=== PATIENT | female | born 1950 | race Caucasian/White ===

== ENCOUNTER 2017-01-03 08:36 | Day surgery (SDC) | payer OTHER ==
--- NOTE | 2017-01-01 15:45 | EKG Report ---
Test Performed on : 01/01/2017 3:38:56 PM Test Reason : PAT Blood Pressure : / mmHG Vent. Rate : 072 BPM Atrial Rate : 072 BPM P-R Int : 172 ms QRS Dur : 142 ms QT Int : 434 ms P-R-T Axes : 067 044 001 degrees QTc Int : 475 ms Normal sinus rhythm. Right bundle branch block T wave abnormality, consider inferior ischemia Abnormal ECG When compared with ECG of 25-FEB-2014 13:33, T wave inversion now evident in Inferior leads Confirmed by Shaggy AYOUB, Silvio Oneil ([id number]) on 01/03/2017 3:22:12 PM
[2017-01-01 16:25] LABS: BASO% 0.4 % (0.0-0.8); EOS# 0.21 X1000 (0.0-0.7); EOS% 2.6 % (0.0-10.0); HEMATOCRIT 42.1 % (37.0-47.0); HEMOGLOBIN 14.3 g/dL (12.0-16.0); MANUAL DIFF NEEDED? NO; MCH 31.3 PG (27-31); MCV 92.1 FL (81-99); MONO# 0.64 X1000 (0.11-0.59); MONO% 7.8 % (1.7-9.3); MPV 9.5 FL (7.4-10.4); NEUT% 56.2 % (42.2-75.2); PLT 189 X1000 (130-400); RBC 4.57 XMIL (4.2-5.4)
[2017-01-01 16:36] LABS: URINE MICRO REVIEW NEEDED? NO; URINE SOURCE CLEAN CATCH
[2017-01-01 16:41] LABS: BILIRUBIN URINE NEGATIVE (NEGATIVE); BLOOD URINE NEGATIVE (NEGATIVE); COLOR YELLOW; GLUCOSE URINE NEGATIVE (NEGATIVE); LEUKOCYTES URINE LARGE (NEGATIVE); NITRITE URINE NEGATIVE (NEGATIVE); PROTEIN URINE TRACE mg/dL (NEGATIVE); SP GRAVITY URINE 1.022; TURBIDITY URINE HAZY (CLEAR); UROBILINOGEN URINE NORMAL (NORMAL)
[2017-01-01 16:43] LABS: UR EPITHELIAL CELLS <10 /HPF (<10); URINE BACTERIA 2+ /HPF; URINE RBC <10 /HPF (<10)
[2017-01-01 17:45] LABS: AGAP 13; ALBUMIN 4.1 g/dL (3.5-5.0); ALKALINE PHOSPHATASE 84 U/L (32-104); BUN 15 mg/dL (8-22); CALCIUM 9.2 mg/dL (8.8-10.2); CHLORIDE 104 mmol/L (98-107); COSMO 288; GOT 20 U/L (10-30); GPT 19 U/L (10-36); POTASSIUM 4.3 mmol/L (3.5-5.1); SODIUM 144 mmol/L (136-145); TCO2 27 mmol/L (25-35); TOTAL PROTEIN 6.6 g/dL (6.3-8.3)
--- NOTE | 2017-01-01 19:59 | Diag Imaging Result Document ---
PROCEDURE NAME: CHEST-2 VIEWS - 01/01/2017 PA AND LATERAL RADIOGRAPHS OF CHEST: COMPARISON: 08/19/2014. FINDINGS: There is evidence of prior granulomatous disease, stable. There is stable mild elevation of the right hemidiaphragm. There is suggestion of mild linear scarring at the left lung base versus subsegmental atelectasis. The lungs are grossly clear, otherwise. Cardiac silhouette is unremarkable. IMPRESSION: Mild left basilar scarring versus subsegmental atelectasis. No definite acute pathology, otherwise.
[2017-01-03] MEDS ORDERED: LR 1,000 ML ONE ×3 (09:11→11:31)
[2017-01-03] MEDS ORDERED: PEPCID ONE (09:11)
[2017-01-03] MEDS ORDERED: KEFZOL 1 GM/D5W 50 ML ONE (09:12)
[2017-01-03] MEDS ORDERED: MARCAINE 0.25% PF/EPI 1:200,000 ONE (09:39)
[2017-01-03] MEDS ORDERED: SODIUM CHLORIDE 0.9% ONE (09:39)
[2017-01-03] MEDS ORDERED: FENTANYL ONE (11:23)
[2017-01-03] MEDS ORDERED: DIPRIVAN 1% ONE (11:23)
[2017-01-03] MEDS ORDERED: VERSED ONE (11:23)
[2017-01-03] MEDS: DEMEROL ONE ×2 (11:26→11:33)
[2017-01-03] MEDS ORDERED: ZOFRAN ONE (11:30)
[2017-01-03] MEDS ORDERED: XYLOCAINE-MPF 2% ONE (11:30)
[2017-01-03] MEDS ORDERED: EPHEDRINE ONE (11:30)
[2017-01-03] MEDS ORDERED: NEOSTIGMINE ONE (11:30)
[2017-01-03] MEDS ORDERED: ROBINUL ONE (11:30)
[2017-01-03] MEDS ORDERED: QUELICIN (DOSE) ONE (11:30)
[2017-01-03] MEDS ORDERED: ZEMURON ONE (11:30)
[2017-01-03] MEDS ORDERED: DECADRON ONE (11:31)
--- NOTE | 2017-01-03 11:31 | OPERATIVE NOTE ---
PROCEDURE DATE: 01/03/2017 PREOPERATIVE DIAGNOSES: 1. Cholecystitis. 2. Cholelithiasis. 3. Morbid obesity. 4. History of thrombocytopenia. PROCEDURE: Laparoscopic cholecystectomy with attempted cholangiogram. POSTOPERATIVE DIAGNOSIS: Chronic cholecystitis with cholelithiasis. DESCRIPTION OF PROCEDURE: The patient was brought to the operating room. After satisfactory induction of IV and endotracheal anesthesia, athrombic TEDs were placed. Her abdomen was broadly prepped and draped in the appropriate manner. Initially, a supraumbilical approach was taken with a Roper and Marcaine with epinephrine. The abdomen was insufflated to 3-1/2 L of carbon dioxide. Again, after infiltration with Marcaine and epinephrine, two 10 and two 5 mm trocars were placed. The fan retractor was deployed to ease in dissection of the hilum. The hilum was subsequently dissected. The gallbladder was grasped and retracted superiorly. The cystic duct itself was quite small. Attempted cystic duct cholangiogram was unsuccessful. For this reason, the duct was doubly clipped and divided, as was the cystic artery. The gallbladder was dissected from the liver bed with the use of monopolar scissors, freed up, placed in an EndoCatch bag, and removed. Reinspection of the liver bed revealed tiny bleeding points that were controlled by electrocautery. The subhepatic and subphrenic spaces were aspirated free of the small amount of bile and blood. All trocars were removed after abdominal deflation. The supraumbilical incision underwent fascial closures of 0 Surgilon. All skin incisions were closed with subcuticular 4-0 Vicryl. The gallbladder was subsequently opened, revealing multiple multifaceted black stones. A photo was obtained. The patient was subsequently awakened and extubated in the operating room, and transferred to recovery. ESTIMATED BLOOD LOSS: About 10 mL.
[2017-01-03] MEDS ORDERED: PHENERGAN ONE (11:46)
[2017-01-03] MEDS ORDERED: NORCO-10 ONE (12:08)
[2017-01-03 13:40] VITALS: BP 137/65
== END 2017-01-03 13:40 | disposition home or self-care (01) ==
LOC: OPS 08:36
PROVIDERS: ATTEND Surgery
DX: K80.10 Calculus of gallbladder with chronic cholecystitis without obstruction (principal); I10 Essential (primary) hypertension; M19.90 Unspecified osteoarthritis, unspecified site; Z85.42 Personal history of malignant neoplasm of other parts of uterus; Z96.643 Presence of artificial hip joint, bilateral; E66.01 Morbid (severe) obesity due to excess calories; Z68.41 Body mass index [BMI] 40.0-44.9, adult; F32.9 Major depressive disorder, single episode, unspecified; Z79.899 Other long term (current) drug therapy
CPT/HCPCS: 71020; 80053; 81001; 85025; 88304; 93005; 93010; J0330; J0690; J1100; J2175; J2250; J2405; J2550; J3010; J7120; Q9966; J2710